=== PATIENT | female | born 1980 | race Caucasian/White ===

== ENCOUNTER 2024-09-17 17:57 | Emergency (ER) | payer OTHER ==
[2024-09-17 18:28] VITALS: TEMP 97.5
--- NOTE | 2024-09-17 18:46 | ED ---
Anxiety HPI - General Chief Complaint: Anxiety Stated Complaint: mental health Time Seen by Provider: 09/17/24 18:33 Source: patient, RN notes reviewed, old records reviewed Mode of arrival: ambulatory Limitations: altered mental status (She is going to [facility]) - History of Present Illness Initial Comments: This is a 44-year-old female to the ER with severe anxiety MD Complaint: anxiety, heart racing Symptoms: palpitations, sense of impending doom Place: home Previous History of Same: Yes Severity: severe Quality: intermittent, worsening Improves With: medication Worsens With: nothing Associated symptoms: chest pain - Related Data Allergies/Adverse Reactions: Allergies Allergy/AdvReac Type Severity Reaction Status Date / Time amoxicillin Allergy Unknown Verified 09/17/24 18:22 Review of Systems ROS Statement: Those systems with pertinent positive or pertinent negative responses have been documented in the HPI. ROS Other: All systems not noted in ROS Statement are negative. Past Medical History Past Medical History: No Reported History Past Surgical History: No Surgical Hx Reported Past Psychological History: Anxiety, Depression Smoking Status: Current every day smoker Past Alcohol Use History: Daily Past Drug Use History: None Reported General Exam Limitations: no limitations General appearance: anxious Head exam: Present: atraumatic, normocephalic, normal inspection Eye exam: Present: normal appearance, PERRL, EOMI. Absent: scleral icterus, conjunctival injection, periorbital swelling ENT exam: Present: normal exam, mucous membranes moist Neck exam: Present: normal inspection. Absent: tenderness, meningismus, lymphadenopathy Respiratory exam: Present: normal lung sounds bilaterally. Absent: respiratory distress, wheezes, rales, rhonchi, stridor Cardiovascular Exam: Present: regular rate, normal rhythm, normal heart sounds. Absent: systolic murmur, diastolic murmur, rubs, gallop, clicks GI/Abdominal exam: Present: soft, normal bowel sounds. Absent: distended, tend erness, guarding, rebound, rigid Extremities exam: Present: normal inspection, full ROM, normal capillary refill. Absent: tenderness, pedal edema, joint swelling, calf tenderness Back exam: Present: normal inspection Neurological exam: Present: alert, oriented X3, CN II-XII intact Psychiatric exam: Present: normal affect, normal mood Skin exam: Present: warm, dry, intact, normal color. Absent: rash Course Vital Signs 09/17/24 09/17/24 18:22 18:51 Temperature 97.5 F L Pulse Rate 112 H 99 Respiratory 22 20 Rate Blood Pressure 140/95 O2 Sat by Pulse 96 98 Oximetry - Reevaluation(s) Reevaluation #1: 09/17/24 18:46 Medical records reviewed Reevaluation #2: 09/17/24 19:36 Patient symptoms improved here in the ER Reevaluation #3: 09/17/24 19:36 Patient informed of results questions answered Reevaluation #4: Was pt. sent in by a medical professional or institution (, [facility]HA, [facility]ESE COOK, urgent care, hospital, or correction...) When possible be specific @ -no Did you speak to anyone other than the patient for history (EMS, parent, family, police, friend...)? What history was obtained from this source @ -no Did you review nursing and triage notes (agree or disagree)? Why? @ -agree Are old charts reviewed (outside hosp., previous admission, EMS record, old EKG, old radiological studies, urgent care reports/EKG's, correction records)? Report findings @ -yes Differential Diagnosis (chest pain, altered mental status, abdominal pain women, abdominal pain men, vaginal bleeding, weakness, fever, dyspnea, syncope, headache, dizziness, GI bleed, back pain, seizure, CVA, palpatations, mental health, musculoskeletal)? @ -prior EKG interpreted by me (3pts min.). @ -yes X-rays interpreted by me (1pt min.). @ -yes negative for acute disease CT interpreted by me (1pt min.). @ -no U/S interpreted by me (1pt. min.). @ -no What testing was considered but not performed or refused? (CT, X-rays, U/S, labs)? Why? @ -none What meds were considered but not given or refused? Why? @ -none Did you discuss the management of the patient with other professionals (professionals i.e. SASHA Tavarez, CHEESE COOK, lab, RT, psych nurse, certified social workers in health care, design printer balloon, teacher, licensing officer, caseworker protective services)? Give summary @ -no Was smoking cessation discussed for >3mins.? @ -no Was critical care preformed (if so, how long)? @ -no Were there social determinants of health that impacted care today? How? (Homelessness, low income, unemployed, alcoholism, drug addiction, transportation, low edu. Level, literacy, decrease access to med. care, retirement, rehab)? @ -none Was there de-escalation of care discussed even if they declined (Discuss DNR or withdrawal of care, Hospice)? DNR status @ -no What co-morbidities impacted this encounter? (DM, HTN, Smoking, COPD, CAD, Cancer, CVA, ARF, Chemo, Hep., AIDS, mental health diagnosis, sleep apnea, morbid obesity)? @ -none Was patient admitted / discharged? Hospital course, mention meds given and route, prescriptions, significant lab abnormalities, going to OR and other pertinent info. @ - Undiagnosed new problem with uncertain prognosis? @ -no Drug Therapy requiring intensive monitoring for toxicity (Heparin, Nitro, Insulin, Cardizem)? @ -no Were any procedures done? @ -no Diagnosis/symptom? @ - Acute, or Chronic, or Acute on Chronic? @ -Acute Uncomplicated (without systemic symptoms) or Complicated (systemic symptoms)? @ -Complicated Side effects of treatment? @ -no Exacerbation, Progression, or Severe Exacerbation? @ -exacerbation Poses a threat to life or bodily function? How? (Chest pain, [place], [place], pneumonia, PE, COPD, DKA, ARF, appy, cholecystitis, CVA, Diverticulitis, Homicidal, Suicidal, threat to staff... and all critical care pts) @ -yes Reevaluation #5: Differential Headache: Migraine, tension, cluster, carbon monoxide, central venous thrombosis, pension karma temporal arteritis, acute closure glaucoma, intercranial hemorrhage, mastoiditis, sinusitis, head injury, this is not meant to be an all-inclusive list. Medical Decision Making - Medical Decision Making 44 female to ER with severe anxiety reaction and headache. All symptoms are resolved here in the ER patient can be discharged home Disposition Clinical Impression: Acute anxiety, Migraine headache Disposition: HOME SELF-CARE Condition: Good Instructions (If sedation given, give patient instructions): Generalized Anxiety Disorder (ED) Is patient prescribed a controlled substance at d/c from ED?: No Referrals: None,Stated [Primary Care Provider] - 1-2 days Time of Disposition: 19:35
[2024-09-17] MEDS: LORazepam 1 MG TAB PO STA (18:55)
[2024-09-17] MEDS: KETOROLAC 15 MG/ML 1 ML VIAL IM STA (19:18)
[2024-09-17] MEDS: PROCHLORPERAZINE 10 MG TAB PO STA (19:18)
[2024-09-17] MEDS: diphenhydrAMINE 50 MG CAP PO STA (19:18)
[2024-09-17 20:28] VITALS: BP 134/88; PULSE 92; RESP 18
== END 2024-09-17 20:28 | disposition home or self-care (01) ==
LOC: EC 17:57
CPT/HCPCS: 96372; 99283

== ENCOUNTER → 2024-10-01 | Outpatient (CLI) | payer OTHER ==
--- NOTE | 2024-10-01 10:12 | XR ---
EXAMINATION TYPE: XR chest 2V DATE OF EXAM: 10/01/2024 10:09 AM COMPARISON: None. CLINICAL INDICATION: Female, 44 years old with history of R06.00 DYSPNEA, TECHNIQUE: XR chest 2V view(s) obtained. FINDINGS: The heart size is normal. The pulmonary vasculature is normal. Mild bibasilar infiltrates appear to be present.. Scoliosis thoracic spine. IMPRESSION: 1. Appear to be mild bibasilar infiltrates. Correlate for atelectasis. [facility], , 10/01/2024 10:10 AM
== END | disposition home or self-care (01) ==
LOC: RADXRMAIN 09:56
PROVIDERS: ATTEND Family Medicine
DX: M41.84 Other forms of scoliosis, thoracic region (principal); J98.11 Atelectasis; R06.00 Dyspnea, unspecified
CPT/HCPCS: 71046

== ENCOUNTER 2024-10-08 18:22 | Emergency (ER) | payer OTHER ==
[2024-10-08 18:28] VITALS: TEMP 98
[2024-10-08 18:30] VITALS: RESP 16
--- NOTE | 2024-10-08 18:48 | ED ---
General Adult HPI - General Chief complaint: Psychiatric Symptoms Stated complaint: Hallucinations, suicidal Time Seen by Provider: 10/08/24 18:29 Source: patient, RN notes reviewed, old records reviewed Mode of arrival: EMS Limitations: no limitations - History of Present Illness Initial comments: 44-year-old female presenting for psychiatric evaluation. Patient states she is having hallucinations and has not been sleeping well. She reports suicidal thoughts without suicide attempt. Patient requesting psychiatric evaluation. No physical complaints. - Related Data Previous Rx's Medication Instructions Recorded Mirtazapine [Remeron] 15 mg PO HS PRN #3 tab 10/08/24 Allergies Allergy/AdvReac Type Severity Reaction Status Date / Time amoxicillin Allergy Unknown Verified 09/17/24 18:22 Review of Systems ROS Statement: Those systems with pertinent positive or pertinent negative responses have been documented in the HPI. ROS Other: All systems not noted in ROS Statement are negative. Past Medical History Past Medical History: No Reported History Past Surgical History: No Surgical Hx Reported Past Psychological History: Anxiety, Depression, Schizophrenia Smoking Status: Current every day smoker Past Alcohol Use History: Daily Past Drug Use History: None Reported General Exam Limitations: no limitations General appearance: alert, in no apparent distress Head exam: Present: atraumatic, normocephalic Eye exam: Present: normal appearance Respiratory exam: Present: normal lung sounds bilaterally. Absent: respiratory distress, wheezes Cardiovascular Exam: Present: regular rate, normal rhythm GI/Abdominal exam: Present: soft. Absent: distended, tenderness Neurological exam: Present: alert Psychiatric exam: Present: depressed, suicidal ideation Skin exam: Present: warm, dry, intact Course Vital Signs 10/08/24 10/08/24 18:26 18:28 Temperature 98 F Pulse Rate 86 90 Respiratory 20 16 Rate Blood Pressure 149/94 149/94 O2 Sat by Pulse 97 98 Oximetry - Reevaluation(s) Reevaluation #1: 10/08/24 18:47 Patient cleared for EPS Medical Decision Making - Medical Decision Making Was pt. sent in by a medical professional or institution (, [facility]HA, PROOF READER, urgent care, hospital, or residential...) When possible be specific @ -No Did you speak to anyone other than the patient for history (EMS, parent, family, police, friend...)? What history was obtained from this source @ -No Did you review nursing and triage notes (agree or disagree)? Why? @ -I reviewed and agree with nursing and triage notes Were old charts reviewed (outside hosp., previous admission, EMS record, old EKG, old radiological studies, urgent care reports/EKG's, residential records)? Report findings @ -No old charts were reviewed Differential Mental Health Depression, anxiety, bipolar, psychosis, schizophrenia, borderline personality, situational depression, adjustment disorder, behavioral disorder, brain tumor, malingering, substance abuse, encephalopathy, medication reaction, dementia, hypothyroidism, degenerative neurologic disorder, lupus.... This is not meant to be all-inclusive list EKG interpreted by me (3pts min.). @ -As above X-rays interpreted by me (1pt min.). @ -None done CT interpreted by me (1pt min.). @ -None done U/S interpreted by me (1pt. min.). @ -None done What testing was considered but not performed or refused? (CT, X-rays, U/S, labs)? Why? @ -None What meds were considered but not given or refused? Why? @ -None Did you discuss the management of the patient with other professionals (professionals i.e. , PA, PROOF READER, lab, RT, psych nurse, oncology social worker, president mortgage company, teacher, morals squad police officer, employment case manager)? Give summary @ -No Was smoking cessation discussed for >3mins.? @ -No Was critical care preformed (if so, how long)? @ -No Were there social determinants of health that impacted care today? How? (Homelessness, low income, unemployed, alcoholism, drug addiction, transportation, low edu. Level, literacy, decrease access to med. care, shelter, rehab)? @ -No Was there de-escalation of care discussed even if they declined (Discuss DNR or withdrawal of care, Hospice)? DNR status @ -No What co-morbidities impacted this encounter? (DM, HTN, Smoking, COPD, CAD, Cancer, CVA, ARF, Chemo, Hep., AIDS, mental health diagnosis, sleep apnea, morbid obesity)? @ -None Was patient admitted / discharged? Hospital course, mention meds given and route, prescriptions, significant lab abnormalities, going to OR and other pertinent info. @Cleared for mental health at 1847. Patient evaluated by mental health and does not meet inpatient criteria. Safe for discharge. Psychiatry does recommend Remeron for insomnia. Undiagnosed new problem with uncertain prognosis? @ -No Drug Therapy requiring intensive monitoring for toxicity (Heparin, Nitro, Insulin, Cardizem)? @ -No Were any procedures done? @ -No Diagnosis/symptom? @ -Anxiety, insomnia Acute, or Chronic, or Acute on Chronic? @ -Acute Uncomplicated (without systemic symptoms) or Complicated (systemic symptoms)? @ -Default Side effects of treatment? @ -No Exacerbation, Progression, or Severe Exacerbation? @ -No Poses a threat to life or bodily function? How? (Chest pain, [place], [place], pneumonia, PE, COPD, DKA, ARF, appy, cholecystitis, CVA, Diverticulitis, Homicidal, Suicidal, threat to staff... and all critical care pts) @ -Low risk at this time Disposition Clinical Impression: Depression, Acute anxiety Disposition: HOME SELF-CARE Condition: Fair Instructions (If sedation given, give patient instructions): Anxiety (ED) Prescriptions: Mirtazapine [Remeron] 15 mg PO HS PRN #3 tab PRN Reason: Insomnia Is patient prescribed a controlled substance at d/c from ED?: No Referrals: Henry Aguirre MD [Primary Care Provider] - 1-2 days Time of Disposition: 19:39
[2024-10-08] MEDS: LORazepam 1 MG TAB PO STA (19:52)
[2024-10-08 20:02] VITALS: BP 138/90; PULSE 87
== END 2024-10-08 20:02 | disposition home or self-care (01) ==
LOC: EC 18:22
DX: F32.A Depression, unspecified (principal); F41.9 Anxiety disorder, unspecified; G47.00 Insomnia, unspecified; F17.200 Nicotine dependence, unspecified, uncomplicated; Z88.0 Allergy status to penicillin
CPT/HCPCS: 82075; 99284

== ENCOUNTER → 2025-01-30 | Outpatient (CLI) | payer OTHER ==
--- NOTE | 2025-01-30 10:16 | XR ---
EXAMINATION TYPE: XR Hip Bilateral Complete DATE OF EXAM: 01/30/2025 10:11 AM COMPARISON: None CLINICAL INDICATION: Female, 44 years old with history of scoliosis; PHH, pain TECHNIQUE: XR Hip Bilateral Complete; Frontal and lateral views FINDINGS: No evidence for acute process, joint dislocation or significant soft tissue swelling. Osteo phyte formation of the superior acetabulum of the hip. There is mild joint space narrowing. IMPRESSION: 1. No evidence for acute process. 2. Mild hip osteoarthrosis. [facility], , 01/30/2025 10:13 AM
--- NOTE | 2025-01-30 10:17 | XR ---
EXAMINATION TYPE: XR lumbar spine 2 or 3V DATE OF EXAM: 01/30/2025 10:11 AM COMPARISON: Same day CLINICAL INDICATION: Female, 44 years old with history of Scoliosis; PHH, pain TECHNIQUE: XR lumbar spine 2 or 3V - Frontal, lateral and coned in L5-S1 lateral views of the spine. FINDINGS: No evidence of any acute osseous pathology. No evidence of loss of vertebral body height i s seen. There is normal alignment of the lumbar vertebral bodies. Scattered disc space narrowing. Mul tilevel marginal osteophyte formation throughout the visualized spine. There is facet joint arthropat hy throughout the spine. Scattered at least mild neural foraminal stenosis. IMPRESSION: 1. No acute fracture. 2. Moderate disc degeneration changes at L5-S1 with more mild throughout the remainder of the spine. 3. CC scoliosis survey for same day radiograph regarding scoliosis. [facility], , 01/30/2025 10:14 AM
--- NOTE | 2025-01-30 10:19 | XR ---
EXAMINATION TYPE: XR scoliosis survey DATE OF EXAM: 01/30/2025 10:12 AM COMPARISON: None CLINICAL INDICATION: Female, 44 years old with history of scoliosis; [facility] TECHNIQUE: Frontal and lateral views of the spine while standing. FINDINGS: There are 12 rib-bearing thoracic vertebrae and 5 haa-vth-guzgasv lumbar vertebrae. Dextroscoliosis apex T8 with Barragan angle 53 degrees. Mild degeneration changes of the spine present. No vertebral anomalies. The vertebral body heights, intervertebral disc spaces, and vertebral column alignment are well maintained. No evidence of spondylolysis or spondylolisthesis. The lungs are clear. The aortic knob, cardiac apex, and gastric bubble are left-sided. The bowel gas pattern is unremarkable. IMPRESSION: 1. DEXA scoliosis with Barragan angle 53 degrees, apex T8. 2. Mild multifocal degeneration changes throughout the spine. [facility], , 01/30/2025 10:16 AM
== END | disposition home or self-care (01) ==
LOC: RADXRMAIN 08:58
PROVIDERS: ATTEND Family Medicine
DX: M51.379 Other intervertebral disc degeneration, lumbosacral region without mention of lumbar back pain or lower extremity pain (principal); M16.0 Bilateral primary osteoarthritis of hip; M41.9 Scoliosis, unspecified
CPT/HCPCS: 72082; 72100; 73521

== ENCOUNTER → 2025-03-23 | Outpatient (CLI) | payer OTHER ==
--- NOTE | 2025-03-23 15:43 | MR ---
EXAMINATION TYPE: MR lumbar spine wo con DATE OF EXAM: 03/23/2025 1:34 PM COMPARISON: Radiograph 03/11/2025 CLINICAL INDICATION: Female, 45 years old with history of M47.26,M41.9, M54.50, Lower back pain, RLE radiculopathy. TECHNIQUE: Multiplanar, multisequence images of the lumbar spine were acquired without IV contrast. FINDINGS: Levoconvex curvature centered along the upper lumbar spine. Mild to moderate facet arthropathy mid to lower lumbar spine. Mild multilevel degenerative disc disea se, more moderate on the left at L4-L5 and L5-S1 with desiccated and narrowed discs. Mild disc bulging is also present, largest at L3-L4 and L4-L5. Disc bulges are seen eccentric towards the left. Overall mild spinal canal stenosis L3-L4. There is a component of mild congenital spinal c anal stenosis mid lumbar spine with AP canal dimension of 1.1 cm. No large focal disc herniation or significant canal stenosis. Trace grade 1 retrolisthesis L3-L4 and L4-L5. Remaining alignment is maintained. No suspicious bone marrow replacement. Conus medullaris is normal. On the right, changes result in mild neuroforaminal stenosis at L4-L5 and L5-S1. On the left, there is moderate foraminal stenosis at L4-L5 and mild at L5-S1. IMPRESSION: 1. Levoconvex scoliosis centered along the upper lumbar spine. Mild multilevel degenerative disc dise ase, more moderate towards the left at L4-L5 and L5-S1. Mild to moderate facet arthropathy lower lumb ar spine. 2. Degenerative grade 1 retrolistheses L3-L4 and L4-L5. 3. 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 No high-grade canal compromise. 4. Moderate left and mild right neuroforaminal stenosis at L4-L5; mild on both sides at L5-S1. [facility], , 03/23/2025 3:40 PM
== END | disposition home or self-care (01) ==
LOC: RADMRIMAIN 12:23
PROVIDERS: ATTEND Orthopaedic Surgery
DX: M51.16 Intervertebral disc disorders with radiculopathy, lumbar region (principal); M47.26 Other spondylosis with radiculopathy, lumbar region; M43.16 Spondylolisthesis, lumbar region; M99.73 Connective tissue and disc stenosis of intervertebral foramina of lumbar region; M41.86 Other forms of scoliosis, lumbar region
CPT/HCPCS: 72148

== ENCOUNTER → 2025-04-08 | Outpatient (CLI) | payer OTHER ==
--- NOTE | 2025-04-09 11:09 | MR ---
EXAMINATION TYPE: MR thoracic spine wo/w con DATE OF EXAM: 04/08/2025 2:27 PM COMPARISON: 03/08/2025 03/23/2025.. CLINICAL INDICATION: Female, 45 years old with history of M41.9 SCOLIOSIS; PHH, Mid back pain, scolio sis TECHNIQUE: Multi planar, multi sequence imaging was performed utilizing: T1-weighted, short-tau inver wagner recovery and T2-weighted of the thoracic spine. IV Contrast: 13 mL Gadobutrol (None, if empty) FINDINGS: Alignment: There is severe scoliosis changes of the spine with dextroscoliosis apex T8. This results in spinal cord being displaced along the lateral margins of the thecal sac on the right superiorly an d on the left more inferiorly. There is no evidence for significant spinal canal stenosis. The neural foramen some of which are hard to visualize due to the curvature of the spine demonstrate at least m ild neural foraminal stenosis through the area of scoliosis. Spinal cord signal is within normal limi ts. The vertebral body bone marrow signal is within normal limits. No abnormal postcontrast enhanceme nt is identified. No vertebral body abnormalities identified. IMPRESSION: Severe scoliosis of the spine without evidence for high-grade neural foraminal or spinal canal stenos is. The spinal cord does become displaced along the lateral margins of the thecal sac throughout the spine due to the curvature of the spine. Abnormal postcontrast enhancement. [facility], , 04/09/2025 11:07 AM
== END | disposition home or self-care (01) ==
LOC: RADMRIMAIN 13:05
PROVIDERS: ATTEND Orthopaedic Surgery
DX: M41.84 Other forms of scoliosis, thoracic region (principal); M43.8X4 Other specified deforming dorsopathies, thoracic region
CPT/HCPCS: 72157; A9585

== ENCOUNTER → 2025-05-25 | Outpatient (CLI) | payer OTHER ==
[2025-05-25 11:07] VITALS: BP 118/88; PULSE 84; RESP 16; TEMP 97.2
--- NOTE | 2025-05-25 14:38 | P.PAINPG ---
Objective - Vital Signs Vital signs: Intake & Output 05/24/25 05/25/25 05/25/25 18:59 06:59 18:59 Weight 117.934 kg PQRS Measure Charge Sheet Comment: HISTORY OF PRESENT ILLNESS: A 45 yr old female as a referral from Dr Cowan presents today w severe and chronic LBP > 1 yr secondary to radiculopathy, spondylosis and facet arthropathy without myelopathy for evaluation. Pt states pain level is provoked at 9 /10 in intensity, constant, localized in the lumbar spine, predominantly axial, sharp in character w occasional shooting pain towards the LEs. Pain is provoked by lifting. Pain is alleviated by medications, repositioning and rest . Oswestry axial pain score at 22. PMH: OA, MDD/ Anxiety/ Schizophrenia PSH: Denies SH: Daily tobacco use, No ETOH use, No illicit drug use FH: Non contributory All: See list Medications include [place] 5/325 (03/[address] Aguirre), Tyl, Ibu REVIEW OF ORGAN SYSTEMS: CONSTITUTIONAL: No fevers or chills. No recent weight loss. NEUROLOGICAL: + numbness and tingling along the distal extremities. No seizure disorders or headaches. MUSCULOSKELETAL: + pain PSYCHIATRIC: Denies current depression or suicidal thoughts. Physical Examinations : Constitutional : Cooperative , not in acute distress . Neurologic : Cranial nerve II to XII intact. No focal neurological deficits. Psychiatric : alert & oriented x 3. Matching mood & appropriate affect. Judgment & insight intact. Musculoskeletal : Cervical Spine Motor strength in the deltoid and biceps: Normal right side. Normal Left side Motor strength biceps and the wrist extensors: Normal right side . Normal left side Motor strength in the triceps muscle: Normal right side. Normal left side Deep tendon reflexes: Normal at the biceps. Normal at Brachioradialis. Normal at triceps Vertebral body tenderness to deep palpation over Cervical facet loading test: positive bilaterally Spurling test: positive bilaterally Neck distraction test: positive bilaterally Raghavendra sign: positive bilaterally Lumbar spine Motor strength lower extremities ,thigh and legs 5/5 Right side , 5/5 Left side Deep tendon reflexes : Normal Knee Jerk. Normal Ankle Jerk Vertebral body tenderness over Zuluaga Test positive Lumbar facet Loading Test: positive Right / positive Left Range of motion of the lumbar spine Flexion 30 degrees, extension 10 degrees Straight Leg Raise test: Left/ Right positive at degrees Eliana test: positive right / positive left. Severe tenderness over the Sacroiliac joint on the Right / Left sides Gaenslen test: positive bilaterally Seated flexion test: positive bilaterally. Sacral spine : Severe tenderness over the Sacroiliac joint: right side / left side Range of motion: Flexion of the lumbar spine <60 degrees Range of motion: Extension of the lumbar spine <20 degrees Gaenslen's Test positive Eliana test: positive right side / left side Thigh Thrust Test Sacral Thrust Test Imaging: MRI non contrast lumbar spine from 03/23/25 reviewed Assessment/ Plan : Levoconvex scoliosis, L3-L5 retrolisthesis Recommendation of medication management. [place] 5/325mg #90 w RF. opiate/ narcotic agreement signed 05/25/25. Use, side effects, adverse reactions, safe storage discussed. All questions answered. I have spent greater than 30 minutes on patient care today. Dr Pedro was available by phone for the evaluation of this patient. The time was used to review the medical records including relevant urine studies and Prescription history (MAPs), review of the available imaging, evaluation and examination of the patient, coordination of care with the medical staff and if applicable referring physicians, as well as creation of the medical record - Pain Location Bilateral Lower Back Non-Pharmacological Interventions: Inactivity Pharmacological Interventions: PRN Medication Home Medications: Ambulatory Orders Mirtazapine [Remeron] 15 mg PO HS PRN #3 tab 10/08/24 Ipratropium-Albuterol Nebulize [Duoneb 0.5 mg-3 mg/3 ml Soln] 3 ml INHALATION Q4-6H PRN #90 ml 04/11/25 predniSONE 50 mg PO DAILY 5 Days #5 tab 04/11/25 HYDROcodone/APAP 5-325MG [[place] 5-325] 1 tab PO TID PRN 30 Days #90 tab 05/25/25 HYDROcodone/APAP 5-325MG [[place] 5-325] 1 tab PO TID PRN 30 Days #90 tab 05/25/25 Varenicline [Chantix Continuing Pack] 1 mg PO BID 05/25/25 Controlled Substance Measures - Controlled Substance Measures Is patient prescribed a controlled substance at discharge?: Yes When asked, does pt state using other controlled substances?: Yes If prescribed controlled substance>3 days was MAPS reviewed?: Yes If Rx opioid, was Start Talking consent form obtained?: Yes Was information provided regarding opioid addiction?: Yes
== END ==
LOC: PNWHC3 10:41
PROVIDERS: ATTEND Specialist
DX: M41.80 Other forms of scoliosis, site unspecified (principal); M41.9 Scoliosis, unspecified; M43.16 Spondylolisthesis, lumbar region; Z88.0 Allergy status to penicillin
CPT/HCPCS: 99211